=== PATIENT | male | born 1975 | race Caucasian/White ===

== ENCOUNTER 2018-11-07 15:53 | Emergency (ER) | payer MEDICAID ==
[~2018-11-07] VITALS: Ht 175.3 cm; Wt 80.9 kg
[2018-11-07 16:15] VITALS: Ht 175.3 cm; Wt 80.9 kg
[2018-11-07 18:15] LABS: BASOPHILS 0.2 % (0-2); EOSINOPHILS 5.1 % (0-7); HEMATOCRIT 39.7 % (42.0-54.0); HEMOGLOBIN 13.4 g/dL (13.5-17.5); MCH 30.9 pg (26.0-34.0); MCHC 33.8 g/dL (31.0-37.0); MCV 91.5 fL (80.0-100.0); MEAN PLATELET VOLUME 10.4 fL (7.4-10.4); MONOCYTES 5.5 % (2-11); NEUTROPHILS 66.2 % (40-80); PLATELET COUNT 176 10x3/uL (130-400); RBC 4.34 10x6/uL (4.20-6.10); RDW 12.5 % (11.5-14.5); WBC 4.5 10x3/uL (4.8-10.8)
[2018-11-07 18:46] LABS: ALBUMIN 3.6 g/dL (3.4-5.0); ALKALINE PHOSPHATASE 58 U/L (46-116); ALT (SGPT) 50 U/L (10-68); BILIRUBIN - TOTAL 0.44 mg/dL (0.2-1.3); CALC OSMOLALITY 278 mosm/kg (275-300); CALCIUM 8.4 mg/dL (8.5-10.1); CARBON DIOXIDE 27.2 mmol/L (21.0-32.0); CHLORIDE - SERUM 105 mmol/L (98-107); GLUCOSE 92 mg/dL (74-106); POTASSIUM - SERUM 3.8 mmol/L (3.5-5.1); SODIUM 140 mmol/L (136-145); UREA NITROGEN 12 mg/dL (7-18); eGFR NON AFRICAN AMERICAN 87 mL/min (90-120)
[2018-11-07] MEDS ORDERED: TORADOL10 MG PO (21:31)
[2018-11-07 22:15] VITALS: BP 116/85
== END 2018-11-07 22:15 | disposition home or self-care (01) ==
LOC: D.ER 15:53
PROVIDERS: Emergency Medicine
DX: S80.12XA Contusion of left lower leg, initial encounter (principal); X58.XXXA Exposure to other specified factors, initial encounter; Y93.89 Activity, other specified; Y92.89 Other specified places as the place of occurrence of the external cause; S93.402A Sprain of unspecified ligament of left ankle, initial encounter

== ENCOUNTER 2019-01-02 22:17 | Emergency (ER) | payer MEDICAID ==
[~2019-01-02] VITALS: Ht 175.3 cm; Wt 84.1 kg
[~2019-01-02 22:17] MED LIST: TORADOL10 MG PO
[2019-01-02 22:22] VITALS: Ht 175.3 cm; Wt 84.1 kg
[2019-01-02 23:46] VITALS: BP 131/82
== END 2019-01-02 23:47 | disposition home or self-care (01) ==
LOC: D.ER 22:17
DX: S80.211A Abrasion, right knee, initial encounter (principal); Y04.2XXA Assault by strike against or bumped into by another person, initial encounter; Y92.89 Other specified places as the place of occurrence of the external cause; S01.81XA Laceration without foreign body of other part of head, initial encounter